=== PATIENT | male | born 1960 | race Caucasian/White ===

== ENCOUNTER 2018-02-22 07:43 | Inpatient (IN) | payer MEDICAID ==
--- NOTE | 2018-02-22 14:22 | PCM.HP ---
H&P History of Present Illness - General Date of Service: 02/22/18 Source of Information: Patient History Limitations: Reports: No Limitations - History of Present Illness Initial Comments - Free Text/Narative: Pt is a 58 year old male for VivekDE, who has had Right HIP ORIF done by Dr. Santos on 02/16/18. He has been recuperating well at [facility]. Pt has been able to ambulates with walker. He has been admitted here to [facility] for physical rehab. Pt's baseline is he uses Crutches at home and has with touch touch on the right foot. Pt does not have any concerns. No fever or chills. No nausea or vomiting. He does c/o pain but does not appear in any significant discomfort. Improves with: Reports: None Worsens with: Reports: None Associated Symptoms: Denies: Confusion, Chest Pain, Cough, Diaphoresis, Fever/ Chills, Headaches, Nausea/Vomiting, Rash, Seizure, Shortness of Breath, Syncope , Weakness Right Hip Pain Score (Numeric/FACES): 10 - Related Data Allergies/Adverse Reactions: Allergies Allergy/AdvReac Type Severity Reaction Status Date / Time amoxicillin Allergy Itching Verified 02/22/18 13:27 oxycodone Allergy Rash Verified 02/22/18 13:27 Penicillins Allergy Itching Verified 02/22/18 13:27 Home Medications: Home Meds Benztropine [Cogentin] 0.5 mg PO TID 02/22/18 [History] Doxazosin [Doxazosin Mesylate] 2 mg PO BEDTIME 02/22/18 [History] LORazepam 0.5 mg PO BID 02/22/18 [History] Mirtazapine [Remeron] 30 mg PO BEDTIME 02/22/18 [History] Voriconazole 200 mg PO BID 02/22/18 [History] Warfarin [Coumadin] 1 mg PO DAILY 02/22/18 [History] Ziprasidone HCl 40 mg PO BID 02/22/18 [History] Social & Family History - Tobacco Use Smoking Status *Q: Unknown Ever Smoked Second Hand Smoke Exposure: Yes - Caffeine Use Caffeine Use: Reports: None - Recreational Drug Use Recreational Drug Use: Yes Drug Use in Last 12 Months: Yes Recreational Drug Type: Reports: Ativan, Benzodiazepines, Morphine Recreational Drug Use Frequency: Daily H&P Review of Systems - Review of Systems: Review Of Systems: See Below General: Denies: Fever, Chills, Fatigue, Diaphoresis HEENT: Denies: Headaches, Rhinitis, Post Nasal Drip, Vertigo Pulmonary: Denies: Shortness of Breath, Cough, Sputum Cardiovascular: Denies: Chest Pain, Lightheadedness Gastrointestinal: Denies: Abdominal Pain, Nausea, Vomiting Genitourinary: Denies: Dysuria, Frequency Musculoskeletal: Denies: Joint Pain, Joint Swelling Skin: Reports: Bruising. Denies: Pruritis, Rash Psychiatric: Denies: Confusion, Depression Neurological: Denies: Confusion, Dizziness Exam - Exam Exam: See Below - Vital Signs Vital Signs: Last Vital Signs Temp 98.6 F 02/22/18 13:25 Pulse 96 02/22/18 13:25 Resp 18 02/22/18 13:25 BP 122/79 02/22/18 13:25 Pulse Ox 99 02/22/18 13:25 Weight: 76.204 kg - Exam General: Alert, Oriented, 4 HEENT: PERRLA Neck: Supple, Trachea Midline, 2 Lungs: Clear to Auscultation, Normal Respiratory Effort Cardiovascular: Regular Rate, Regular Rhythm GI/Abdominal Exam: Normal Bowel Sounds, Soft, Non-Tender, No Organomegaly, No Distention, No Abnormal Bruit, No Mass, Pelvis Stable Back Exam: Normal Inspection, Full Range of Motion, NT Extremities: Other (Right Hip: There is a long stapled wound over the lateral aspect of the hip extending into thelateral thigh. the wound appears clean. No erythema around the wound. Minimal tenderness to pressure.Also there is a small surgical wound over the right knee, which is healing nroamlly. Limited flexion of right hip.) Peripheral Pulses: 0: Carotid (L), 2+: Carotid (R), Radial (L), Radial (R) Skin: Warm, Intact - Problem List (1) Closed fracture of right hip requiring operative repair SNOMED Code(s): 647959328 ICD Code: S72.001A - FRACTURE OF UNSP PART OF NECK OF RIGHT FEMUR, INIT Status: Acute Current Visit: Yes Problem List Initiated/Reviewed/Updated: Yes Assessment/Plan Comment:: Assessment: S/P right hip fracture with ORIF Plan: pt is doing well. He needs OT and PT care. Will continue him on discharge meds. Once cleared by physical therapy and he is able to do ADLS with out assistance will plan on discharge. Will Get PT and INR on 02/24/18. Pt is not on pain will get him on tylenol extra strength for pain for now.
[2018-02-22] MEDS ORDERED: Tuberculin, PPD 5 Units/0.1 ML 1 ML MDV IDERM ONE (14:27)
[2018-02-22] MEDS: Acetaminophen 500 MG Tab PO PRN ×2 (15:40→20:52)
[2018-02-22] MEDS: LORazepam 0.5 MG Tab PO SCH (20:08)
[2018-02-22] MEDS: Mirtazapine 15 MG Tab PO SCH (20:09)
[2018-02-22] MEDS: ZIPRASIDONE HCL 20MG CAPSULE PO SCH (20:09)
[2018-02-22] MEDS: Benztropine 0.5 MG Tab PO SCH (20:10)
[2018-02-23] MEDS: Acetaminophen 500 MG Tab PO PRN ×4 (00:50→22:26)
[2018-02-23] MEDS: Benztropine 0.5 MG Tab PO SCH ×2 (08:07→20:06)
[2018-02-23] MEDS: ZIPRASIDONE HCL 20MG CAPSULE PO SCH ×2 (08:07→20:06)
[2018-02-23] MEDS: LORazepam 0.5 MG Tab PO SCH ×2 (08:07→20:00)
[2018-02-23] MEDS: VORICONAZOLE 200 MG PO SCH ×3 (11:41→20:08)
[2018-02-23] MEDS: Cyclobenzaprine 10 MG Tab PO PRN (18:35)
[2018-02-23] MEDS: Doxazosin 2 MG Tab PO SCH (20:05)
[2018-02-23] MEDS: Mirtazapine 15 MG Tab PO SCH (20:07)
[2018-02-24] MEDS: Cyclobenzaprine 10 MG Tab PO PRN ×4 (00:29→19:41)
[2018-02-24] MEDS: Acetaminophen 500 MG Tab PO PRN ×3 (04:32→18:26)
[2018-02-24] MEDS: LORazepam 0.5 MG Tab PO SCH ×3 (07:52→20:51)
[2018-02-24] MEDS: Benztropine 0.5 MG Tab PO SCH ×2 (07:53→19:40)
[2018-02-24] MEDS: ZIPRASIDONE HCL 20MG CAPSULE PO SCH ×2 (07:53→19:39)
[2018-02-24] MEDS: VORICONAZOLE 200 MG PO SCH ×2 (07:54→19:39)
[2018-02-24] MEDS ORDERED: traMADol 50 MG Tab PO ONE (18:56)
[2018-02-24] MEDS ORDERED: traMADol 50 MG Tab ONE (18:59)
[2018-02-24] MEDS: Doxazosin 2 MG Tab PO SCH (19:40)
[2018-02-24] MEDS: Mirtazapine 15 MG Tab PO SCH (19:41)
[2018-02-25] MEDS: Acetaminophen 500 MG Tab PO PRN ×4 (02:00→19:52)
[2018-02-25] MEDS: ZIPRASIDONE HCL 20MG CAPSULE PO SCH ×2 (08:45→19:51)
[2018-02-25] MEDS: Benztropine 0.5 MG Tab PO SCH ×2 (08:46→19:51)
[2018-02-25] MEDS: LORazepam 0.5 MG Tab PO SCH ×2 (08:46→19:53)
[2018-02-25] MEDS: VORICONAZOLE 200 MG PO SCH ×2 (08:46→19:51)
[2018-02-25] MEDS: Cyclobenzaprine 10 MG Tab PO PRN ×3 (08:50→19:52)
[2018-02-25] MEDS ORDERED: traMADol 50 MG Tab PO ONE (16:35)
[2018-02-25] MEDS: Mirtazapine 15 MG Tab PO SCH (19:52)
[2018-02-25] MEDS: Doxazosin 2 MG Tab PO SCH (19:53)
[2018-02-26] MEDS: Acetaminophen 500 MG Tab PO PRN ×3 (01:23→14:14)
[2018-02-26] MEDS: VORICONAZOLE 200 MG PO SCH ×2 (07:33→20:46)
[2018-02-26] MEDS: LORazepam 0.5 MG Tab PO SCH ×2 (07:33→20:46)
[2018-02-26] MEDS: ZIPRASIDONE HCL 20MG CAPSULE PO SCH ×2 (07:34→20:46)
[2018-02-26] MEDS: Benztropine 0.5 MG Tab PO SCH ×2 (07:35→20:46)
[2018-02-26] MEDS: Cyclobenzaprine 10 MG Tab PO PRN ×3 (07:44→20:46)
[2018-02-26] MEDS ORDERED: traMADol 50 MG Tab ONE (12:11)
[2018-02-26] MEDS: traMADol 50 MG Tab PO PRN (12:23)
[2018-02-26] MEDS: Doxazosin 2 MG Tab PO SCH (20:46)
[2018-02-26] MEDS: Mirtazapine 15 MG Tab PO SCH (20:46)
[2018-02-27] MEDS: Acetaminophen 500 MG Tab PO PRN ×2 (05:15)
[2018-02-27] MEDS: Cyclobenzaprine 10 MG Tab PO PRN (05:15)
[2018-02-27] MEDS: traMADol 50 MG Tab PO PRN ×2 (07:38→17:35)
[2018-02-27] MEDS: LORazepam 0.5 MG Tab PO SCH ×2 (07:39→19:48)
[2018-02-27] MEDS: ZIPRASIDONE HCL 20MG CAPSULE PO SCH ×2 (07:39→19:48)
[2018-02-27] MEDS: VORICONAZOLE 200 MG PO SCH ×2 (07:39→19:44)
[2018-02-27] MEDS: Benztropine 0.5 MG Tab PO SCH ×2 (07:40→19:48)
[2018-02-27] MEDS: Doxazosin 2 MG Tab PO SCH (19:44)
[2018-02-27] MEDS: Mirtazapine 15 MG Tab PO SCH (19:49)
[2018-02-28] MEDS: LORazepam 0.5 MG Tab PO SCH ×2 (07:57→20:03)
[2018-02-28] MEDS: VORICONAZOLE 200 MG PO SCH ×2 (07:57→20:05)
[2018-02-28] MEDS: ZIPRASIDONE HCL 20MG CAPSULE PO SCH ×2 (07:58→20:04)
[2018-02-28] MEDS: Benztropine 0.5 MG Tab PO SCH ×2 (07:58→20:05)
[2018-02-28] MEDS: Acetaminophen 500 MG Tab PO PRN ×2 (08:03→18:50)
[2018-02-28] MEDS: traMADol 50 MG Tab PO PRN (14:59)
[2018-02-28] MEDS: Doxazosin 2 MG Tab PO SCH (20:03)
[2018-02-28] MEDS: Mirtazapine 15 MG Tab PO SCH (20:03)
[2018-02-28] MEDS: Cyclobenzaprine 10 MG Tab PO PRN (20:08)
[2018-03-01] MEDS: Acetaminophen 500 MG Tab PO PRN ×2 (01:29→13:30)
[2018-03-01] MEDS: LORazepam 0.5 MG Tab PO SCH ×2 (08:09→19:33)
[2018-03-01] MEDS: ZIPRASIDONE HCL 20MG CAPSULE PO SCH ×2 (08:10→19:33)
[2018-03-01] MEDS: Benztropine 0.5 MG Tab PO SCH ×2 (08:10→19:34)
[2018-03-01] MEDS: traMADol 50 MG Tab PO PRN ×2 (08:11→21:40)
[2018-03-01] MEDS: VORICONAZOLE 200 MG PO SCH ×2 (08:11→19:32)
[2018-03-01] MEDS: Cyclobenzaprine 10 MG Tab PO PRN (11:59)
[2018-03-01] MEDS: Mirtazapine 15 MG Tab PO SCH (19:32)
[2018-03-01] MEDS: Doxazosin 2 MG Tab PO SCH (19:33)
[2018-03-02] MEDS: Cyclobenzaprine 10 MG Tab PO PRN ×2 (02:39→12:51)
[2018-03-02] MEDS: LORazepam 0.5 MG Tab PO SCH ×2 (08:09→19:48)
[2018-03-02] MEDS: VORICONAZOLE 200 MG PO SCH ×2 (08:11→19:49)
[2018-03-02] MEDS: ZIPRASIDONE HCL 20MG CAPSULE PO SCH ×2 (08:11→19:49)
[2018-03-02] MEDS: Benztropine 0.5 MG Tab PO SCH ×2 (08:11→19:49)
[2018-03-02] MEDS: traMADol 50 MG Tab PO PRN ×2 (08:12→15:40)
[2018-03-02] MEDS: Acetaminophen 500 MG Tab PO PRN (08:13)
[2018-03-02] MEDS: Mirtazapine 15 MG Tab PO SCH (19:48)
[2018-03-02] MEDS: Doxazosin 2 MG Tab PO SCH (19:48)
[2018-03-03] MEDS: LORazepam 0.5 MG Tab PO SCH ×2 (08:08→20:18)
[2018-03-03] MEDS: Benztropine 0.5 MG Tab PO SCH ×2 (08:09→20:18)
[2018-03-03] MEDS: VORICONAZOLE 200 MG PO SCH ×2 (08:09→20:17)
[2018-03-03] MEDS: ZIPRASIDONE HCL 20MG CAPSULE PO SCH ×2 (08:09→20:19)
[2018-03-03] MEDS: Acetaminophen 500 MG Tab PO PRN ×2 (08:13→18:51)
--- NOTE | 2018-03-03 08:34 | PCM.PN ---
- General Info Date of Service: 03/03/18 Subjective Update: Patient has some pain of the hip. He denies any fever, no sob, no chest pain, no other health complaints. Denies any issues. - Review of Systems General: Reports: Weakness HEENT: Reports: No Symptoms Pulmonary: Reports: No Symptoms Cardiovascular: Reports: No Symptoms Gastrointestinal: Reports: No Symptoms Genitourinary: Reports: No Symptoms Musculoskeletal: Reports: Leg Pain, Joint Pain Skin: Reports: No Symptoms Neurological: Reports: No Symptoms - Patient Data Vitals - Most Recent: Last Vital Signs Temp 36.4 C 03/02/18 08:00 Pulse 94 03/02/18 08:00 Resp 18 03/02/18 08:00 BP 125/86 03/02/18 19:48 Pulse Ox 97 03/02/18 08:00 Weight - Most Recent: 67.245 kg Med Orders - Current: Current Medications Acetaminophen (Tylenol Extra Strength) 1,000 mg PO Q6H PRN PRN Reason: Pain Last Admin: 03/03/18 08:13 Dose: 1,000 mg Acetaminophen (Tylenol Extra Strength) 500 mg PO Q6H PRN PRN Reason: PAIN Last Admin: 03/02/18 08:13 Dose: 500 mg Benztropine Mesylate (Cogentin) 0.5 mg PO BID [facility] Last Admin: 03/03/18 08:09 Dose: 0.5 mg Cyclobenzaprine HCl (Flexeril) 10 mg PO TID PRN PRN Reason: Pain Last Admin: 03/02/18 12:51 Dose: 10 mg Doxazosin Mesylate (Cardura) 2 mg PO BEDTIME [facility] Last Admin: 03/02/18 19:48 Dose: 2 mg Lorazepam (Ativan) 0.5 mg PO BID [facility] Last Admin: 03/03/18 08:08 Dose: 0.5 mg Mirtazapine (Remeron) 45 mg PO BEDTIME [facility] Last Admin: 03/02/18 19:48 Dose: 45 mg Non-Formulary Medication (Voriconazole [Voriconazole]) 200 mg PO BID [facility] Last Admin: 03/03/18 08:09 Dose: 200 mg Ziprasidone Hcl 20mg (Capsule) 2 each PO BID [facility] Last Admin: 03/03/18 08:09 Dose: 2 each Tramadol HCl (Ultram) 50 mg PO Q6H PRN PRN Reason: Pain Last Admin: 03/02/18 15:40 Dose: 50 mg Warfarin Sodium (Coumadin) 1 mg PO DAILY@1800 [facility] Last Admin: 03/02/18 17:38 Dose: 1 mg Discontinued Medications Acetaminophen (Tylenol Extra Strength) 500 mg PO Q6H PRN PRN Reason: Pain Last Admin: 02/22/18 20:52 Dose: 500 mg Tramadol HCl (Ultram) 50 mg PO ONETIME ONE Stop: 02/24/18 18:57 Last Admin: 02/24/18 18:59 Dose: 50 mg Tramadol HCl (Ultram) Confirm Administered Dose 50 mg .ROUTE .STK-MED ONE Stop: 02/24/18 19:00 Last Admin: 02/24/18 19:39 Dose: Not Given Tramadol HCl (Ultram) 50 mg PO ONETIME ONE Stop: 02/25/18 16:36 Last Admin: 02/25/18 17:47 Dose: 50 mg Tramadol HCl (Ultram) Confirm Administered Dose 50 mg .ROUTE .STK-MED ONE Stop: 02/26/18 12:12 Last Admin: 02/26/18 14:12 Dose: Not Given Tuberculin PPD (Aplisol) 5 unit IDERM ONETIME ONE Stop: 02/22/18 14:28 Last Admin: 02/22/18 18:24 Dose: 5 unit Warfarin Sodium (Coumadin) 1 mg PO ONETIME ONE Stop: 02/22/18 18:01 Last Admin: 02/22/18 18:49 Dose: Not Given - Exam General: Alert, Oriented, Cooperative HEENT: Pupils Equal, Pupils Reactive, EOMI Neck: Supple Lungs: Clear to Auscultation, Normal Respiratory Effort Cardiovascular: Regular Rate, Regular Rhythm GI/Abdominal Exam: Normal Bowel Sounds Back Exam: Normal Inspection Extremities: Normal Inspection - Problem List & Annotations (1) Closed fracture of right hip requiring operative repair SNOMED Code(s): 421652520 Code(s): S72.001A - FRACTURE OF UNSP PART OF NECK OF RIGHT FEMUR, INIT Status: Acute - Problem List Review Problem List Initiated/Reviewed/Updated: Yes - Plan Plan:: Assessment: S/P right hip fracture with ORIF Plan: pt is doing well. He needs OT and PT care. Will continue him on discharge meds. Once cleared by physical therapy and he is able to do ADLS with out assistance will plan on discharge. Will Get PT and INR on 02/24/18. Pt is not on pain will get him on tylenol extra strength for pain for now. Patient to continue current management and PT/OT.
[2018-03-03] MEDS: Doxazosin 2 MG Tab PO SCH (20:18)
[2018-03-03] MEDS: Mirtazapine 15 MG Tab PO SCH (20:19)
[2018-03-03] MEDS: traMADol 50 MG Tab PO PRN (20:21)
[2018-03-04] MEDS: LORazepam 0.5 MG Tab PO SCH ×2 (07:54→19:33)
[2018-03-04] MEDS: ZIPRASIDONE HCL 20MG CAPSULE PO SCH ×2 (07:55→19:34)
[2018-03-04] MEDS: VORICONAZOLE 200 MG PO SCH ×2 (07:55→19:34)
[2018-03-04] MEDS: Benztropine 0.5 MG Tab PO SCH ×2 (07:55→19:34)
[2018-03-04] MEDS: traMADol 50 MG Tab PO PRN ×2 (07:56→19:33)
[2018-03-04] MEDS: Acetaminophen 500 MG Tab PO PRN ×2 (07:57→16:40)
[2018-03-04] MEDS: Cyclobenzaprine 10 MG Tab PO PRN ×2 (12:55→19:33)
[2018-03-04] MEDS: Mirtazapine 15 MG Tab PO SCH (19:32)
[2018-03-04] MEDS: Doxazosin 2 MG Tab PO SCH (19:33)
[2018-03-05] MEDS: ZIPRASIDONE HCL 20MG CAPSULE PO SCH ×2 (07:29→19:12)
[2018-03-05] MEDS: Benztropine 0.5 MG Tab PO SCH ×2 (07:29→19:12)
[2018-03-05] MEDS: LORazepam 0.5 MG Tab PO SCH ×2 (07:29→19:13)
[2018-03-05] MEDS: VORICONAZOLE 200 MG PO SCH ×2 (07:30→19:12)
[2018-03-05] MEDS: traMADol 50 MG Tab PO PRN ×2 (07:35→14:25)
[2018-03-05] MEDS: Acetaminophen 500 MG Tab PO PRN ×2 (08:59→19:13)
[2018-03-05] MEDS: Doxazosin 2 MG Tab PO SCH (19:12)
[2018-03-05] MEDS: Mirtazapine 15 MG Tab PO SCH (19:12)
[2018-03-05] MEDS: Cyclobenzaprine 10 MG Tab PO PRN (19:13)
[2018-03-06] MEDS: traMADol 50 MG Tab PO PRN ×4 (01:56→21:13)
[2018-03-06] MEDS: Acetaminophen 500 MG Tab PO PRN ×2 (01:56→08:42)
[2018-03-06] MEDS: LORazepam 0.5 MG Tab PO SCH ×2 (07:38→19:32)
[2018-03-06] MEDS: VORICONAZOLE 200 MG PO SCH ×2 (07:38→19:35)
[2018-03-06] MEDS: ZIPRASIDONE HCL 20MG CAPSULE PO SCH ×2 (07:38→19:33)
[2018-03-06] MEDS: Benztropine 0.5 MG Tab PO SCH ×2 (07:38→19:34)
--- NOTE | 2018-03-06 14:57 | PCM.PN ---
- General Info Date of Service: 03/06/18 Subjective Update: Patient doing well with PT/OT and denies any health concerns. He has some tenderness of the post surgical hip site but does have a Orthopedics f/u. Functional Status: Reports: Pain Controlled - Review of Systems General: Reports: Weakness (improving ) HEENT: Reports: No Symptoms Pulmonary: Reports: No Symptoms Cardiovascular: Reports: No Symptoms Gastrointestinal: Reports: No Symptoms Genitourinary: Reports: No Symptoms Musculoskeletal: Reports: Joint Pain Skin: Reports: No Symptoms Neurological: Reports: No Symptoms - Patient Data Vitals - Most Recent: Last Vital Signs Temp 36.7 C 03/06/18 07:26 Pulse 83 03/06/18 07:26 Resp 18 03/06/18 07:26 BP 132/90 03/06/18 07:26 Pulse Ox 98 03/06/18 07:26 Weight - Most Recent: 66.497 kg Med Orders - Current: Current Medications Acetaminophen (Tylenol Extra Strength) 1,000 mg PO Q6H PRN PRN Reason: Pain Last Admin: 03/05/18 19:13 Dose: 1,000 mg Acetaminophen (Tylenol Extra Strength) 500 mg PO Q6H PRN PRN Reason: PAIN Last Admin: 03/06/18 08:42 Dose: 500 mg Benztropine Mesylate (Cogentin) 0.5 mg PO BID [facility] Last Admin: 03/06/18 07:38 Dose: 0.5 mg Cyclobenzaprine HCl (Flexeril) 10 mg PO TID PRN PRN Reason: Pain Last Admin: 03/05/18 19:13 Dose: 10 mg Doxazosin Mesylate (Cardura) 2 mg PO BEDTIME [facility] Last Admin: 03/05/18 19:12 Dose: 2 mg Lisinopril (Prinivil) 5 mg PO DAILY [facility] Lorazepam (Ativan) 0.5 mg PO BID [facility] Last Admin: 03/06/18 07:38 Dose: 0.5 mg Mirtazapine (Remeron) 45 mg PO BEDTIME [facility] Last Admin: 03/05/18 19:12 Dose: 45 mg Non-Formulary Medication (Voriconazole [Voriconazole]) 200 mg PO BID [facility] Last Admin: 03/06/18 07:38 Dose: 200 mg Ziprasidone Hcl 20mg (Capsule) 2 each PO BID [facility] Last Admin: 03/06/18 07:38 Dose: 2 each Tramadol HCl (Ultram) 50 mg PO Q6H PRN PRN Reason: Pain Last Admin: 03/06/18 13:56 Dose: 50 mg Warfarin Sodium (Coumadin) 1 mg PO DAILY@1800 [facility] Last Admin: 03/05/18 18:03 Dose: 1 mg Discontinued Medications Acetaminophen (Tylenol Extra Strength) 500 mg PO Q6H PRN PRN Reason: Pain Last Admin: 02/22/18 20:52 Dose: 500 mg Tramadol HCl (Ultram) 50 mg PO ONETIME ONE Stop: 02/24/18 18:57 Last Admin: 02/24/18 18:59 Dose: 50 mg Tramadol HCl (Ultram) Confirm Administered Dose 50 mg .ROUTE .STK-MED ONE Stop: 02/24/18 19:00 Last Admin: 02/24/18 19:39 Dose: Not Given Tramadol HCl (Ultram) 50 mg PO ONETIME ONE Stop: 02/25/18 16:36 Last Admin: 02/25/18 17:47 Dose: 50 mg Tramadol HCl (Ultram) Confirm Administered Dose 50 mg .ROUTE .STK-MED ONE Stop: 02/26/18 12:12 Last Admin: 02/26/18 14:12 Dose: Not Given Tuberculin PPD (Aplisol) 5 unit IDERM ONETIME ONE Stop: 02/22/18 14:28 Last Admin: 02/22/18 18:24 Dose: 5 unit Warfarin Sodium (Coumadin) 1 mg PO ONETIME ONE Stop: 02/22/18 18:01 Last Admin: 02/22/18 18:49 Dose: Not Given - Exam General: Alert, Oriented, Cooperative HEENT: Pupils Equal, Pupils Reactive, EOMI Neck: Supple Lungs: Clear to Auscultation, Normal Respiratory Effort Cardiovascular: Regular Rate, Regular Rhythm GI/Abdominal Exam: Normal Bowel Sounds Extremities: Normal Inspection - Problem List Review Problem List Initiated/Reviewed/Updated: Yes - My Orders Last 24 Hours: My Active Orders 03/06/18 11:41 INR,PT,PROTHROMBIN TIME [COAG] Routine 03/07/18 08:00 Lisinopril [Prinivil] 5 mg PO DAILY - Plan Plan:: Assessment: S/P right hip fracture with ORIF Plan: pt is doing well. He needs OT and PT care. Will continue him on discharge meds. Once cleared by physical therapy and he is able to do ADLS with out assistance will plan on discharge. Will Get PT and INR on 02/24/18. Pt is not on pain will get him on tylenol extra strength for pain for now. No changes to management plan. Continuing PT/OT. Follow Orthopedics as counseled.
[2018-03-06] MEDS: Mirtazapine 15 MG Tab PO SCH (19:32)
[2018-03-06] MEDS: Doxazosin 2 MG Tab PO SCH (19:32)
[2018-03-07] MEDS: Acetaminophen 500 MG Tab PO PRN ×3 (01:45→20:17)
[2018-03-07] MEDS: Lisinopril 5 MG Tab PO SCH (07:52)
[2018-03-07] MEDS: ZIPRASIDONE HCL 20MG CAPSULE PO SCH ×2 (07:52→20:18)
[2018-03-07] MEDS: VORICONAZOLE 200 MG PO SCH ×2 (07:52→20:18)
[2018-03-07] MEDS: LORazepam 0.5 MG Tab PO SCH ×2 (07:52→20:18)
[2018-03-07] MEDS: Benztropine 0.5 MG Tab PO SCH ×2 (07:52→20:19)
[2018-03-07] MEDS: traMADol 50 MG Tab PO PRN ×2 (07:56→14:47)
[2018-03-07] MEDS: Cyclobenzaprine 10 MG Tab PO PRN (18:54)
[2018-03-07] MEDS: Doxazosin 2 MG Tab PO SCH (20:17)
[2018-03-07] MEDS: Mirtazapine 15 MG Tab PO SCH (20:17)
[2018-03-08] MEDS: traMADol 50 MG Tab PO PRN ×2 (03:03→19:19)
[2018-03-08] MEDS: Lisinopril 5 MG Tab PO SCH (08:09)
[2018-03-08] MEDS: VORICONAZOLE 200 MG PO SCH ×2 (08:09→19:21)
[2018-03-08] MEDS: Benztropine 0.5 MG Tab PO SCH ×2 (08:10→19:21)
[2018-03-08] MEDS: ZIPRASIDONE HCL 20MG CAPSULE PO SCH ×2 (08:10→19:21)
[2018-03-08] MEDS: LORazepam 0.5 MG Tab PO SCH ×2 (08:11→21:44)
[2018-03-08] MEDS: Acetaminophen 500 MG Tab PO PRN ×3 (08:13→19:19)
[2018-03-08] MEDS: Doxazosin 2 MG Tab PO SCH (19:19)
[2018-03-08] MEDS: Mirtazapine 15 MG Tab PO SCH (19:19)
[2018-03-08] MEDS: Cyclobenzaprine 10 MG Tab PO PRN (19:20)
[2018-03-09] MEDS: traMADol 50 MG Tab PO PRN ×3 (04:39→20:09)
[2018-03-09] MEDS: Acetaminophen 500 MG Tab PO PRN (04:39)
[2018-03-09] MEDS: Lisinopril 5 MG Tab PO SCH (07:49)
[2018-03-09] MEDS: ZIPRASIDONE HCL 20MG CAPSULE PO SCH ×2 (07:50→21:24)
[2018-03-09] MEDS: VORICONAZOLE 200 MG PO SCH ×2 (07:50→21:25)
[2018-03-09] MEDS: LORazepam 0.5 MG Tab PO SCH ×2 (07:50→19:33)
[2018-03-09] MEDS: Benztropine 0.5 MG Tab PO SCH ×2 (07:50→21:24)
--- NOTE | 2018-03-09 08:37 | PCM.DCSUM1 ---
Discharge Summary - Hospital Course Free Text/Narrative:: Pt was admitted for post -op rehab s/p Right hip ORIF on 02/16/17. Tp has had a uneventful progress. Pt feels that he has attained decent strength and also the wound over the right hip has healed well. Pt has been planned for discharge tomorrow. Plan is to continue on home meds. As patient cannot drive and needs physical therapy, will set him up for home Physical therapy through [facility] in [place]. Coumadin until 03/16/18. Followup with Derrick in 2 wks. HPI Initial Comments: Pt on today's visit claims he has been doing well. The wound has healed well. No fever or chills. Brief History: Kindly see H&P - Discharge Data Discharge Date: 03/10/18 Discharge Disposition: Home, Self-Care 01 Condition: Good - Discharge Diagnosis/Problem(s) (1) Closed fracture of right hip requiring operative repair SNOMED Code(s): 638766328 ICD Code: S72.001A - FRACTURE OF UNSP PART OF NECK OF RIGHT FEMUR, INIT Status: Acute Current Visit: Yes - Patient Summary/Data Consults: Consultations 02/22/18 14:27 OT Evaluation and Treatment [CONS] Routine Please Evaluate and Treat. OT Reason for Consult: ADL's This query below is only for informational purposes and is not editable. Admission Diagnosis/Problem: Pain management PT Evaluation and Treatment [CONS] Routine Please Evaluate and Treat. PT Reason for Consult: Strengthening This query below is only for informational purposes and is not editable. Admission Diagnosis/Problem: Pain management - Patient Instructions Diet: Usual Diet as Tolerated Fluid Restriction: 1500 mL Activity: As Tolerated Driving: Do Not Drive Showering/Bathing: May Shower Wound/Incision Care: Keep Operative Site/Wound Site Clean and Dry - Discharge Plan *PRESCRIPTION DRUG MONITORING PROGRAM REVIEWED*: Yes *COPY OF PRESCRIPTION DRUG MONITORING REPORT IN PATIENT [place]: Yes Prescriptions/Med Rec: traMADol [Ultram] 50 mg PO Q6H PRN 5 Days tablet PRN Reason: Pain Home Medications: Home Meds Benztropine [Cogentin] 0.5 mg PO TID 02/22/18 [History] Doxazosin [Cardura] 2 mg PO BEDTIME 02/22/18 [History] LORazepam 0.5 mg PO BID 02/22/18 [History] Mirtazapine [Remeron] 30 mg PO BEDTIME 02/22/18 [History] Voriconazole 200 mg PO BID 02/22/18 [History] Warfarin [Coumadin] 1 mg PO DAILY 02/22/18 [History] Ziprasidone HCl 40 mg PO BID 02/22/18 [History] Cyclobenzaprine [Flexeril] 10 mg PO TID PRN tablet 03/09/18 [Rx] Lisinopril [Prinivil] 5 mg PO DAILY tablet 03/09/18 [Rx] traMADol [Ultram] 50 mg PO Q6H PRN 5 Days tablet 03/09/18 [Rx] - General Info Date of Service: 03/09/18 Functional Status: Reports: Pain Controlled, Tolerating Diet, Ambulating, Urinating - Review of Systems General: Denies: Weakness, Fatigue HEENT: Denies: Dysphasia, Ear Pain, Headaches Pulmonary: Denies: Sputum, Hemoptysis Cardiovascular: Denies: Edema, Lightheadedness Gastrointestinal: Reports: Flatus. Denies: Abdominal Pain, Diarrhea Genitourinary: Denies: Dysuria, Frequency Musculoskeletal: Denies: Joint Pain, Joint Swelling Skin: Denies: Bruising, Pruritis Neurological: Denies: Confusion, Dizziness, Headache - Patient Data Vitals - Most Recent: Last Vital Signs Temp 98 F 03/09/18 08:00 Pulse 78 03/09/18 08:00 Resp 16 03/09/18 08:00 BP 134/87 03/09/18 08:00 Pulse Ox 99 03/09/18 08:00 Weight - Most Recent: 66.497 kg Med Orders - Current: Current Medications Acetaminophen (Tylenol Extra Strength) 1,000 mg PO Q6H PRN PRN Reason: Pain Last Admin: 03/08/18 15:57 Dose: 1,000 mg Acetaminophen (Tylenol Extra Strength) 500 mg PO Q6H PRN PRN Reason: PAIN Last Admin: 03/09/18 04:39 Dose: 500 mg Benztropine Mesylate (Cogentin) 0.5 mg PO BID [facility] Last Admin: 03/09/18 07:50 Dose: 0.5 mg Cyclobenzaprine HCl (Flexeril) 10 mg PO TID PRN PRN Reason: Pain Last Admin: 03/08/18 19:20 Dose: 10 mg Doxazosin Mesylate (Cardura) 2 mg PO BEDTIME [facility] Last Admin: 03/08/18 19:19 Dose: 2 mg Lisinopril (Prinivil) 5 mg PO DAILY [facility] Last Admin: 03/09/18 07:49 Dose: 5 mg Lorazepam (Ativan) 0.5 mg PO BID [facility] Last Admin: 03/09/18 07:50 Dose: 0.5 mg Mirtazapine (Remeron) 45 mg PO BEDTIME [facility] Last Admin: 03/08/18 19:19 Dose: 45 mg Non-Formulary Medication (Voriconazole [Voriconazole]) 200 mg PO BID [facility] Last Admin: 03/09/18 07:50 Dose: 200 mg Ziprasidone Hcl 20mg (Capsule) 2 each PO BID [facility] Last Admin: 03/09/18 07:50 Dose: 2 each Tramadol HCl (Ultram) 50 mg PO Q6H PRN PRN Reason: Pain Last Admin: 03/09/18 04:39 Dose: 50 mg Warfarin Sodium (Coumadin) 1.5 mg PO DAILY@1800 [facility] Last Admin: 03/08/18 17:42 Dose: 1.5 mg Discontinued Medications Acetaminophen (Tylenol Extra Strength) 500 mg PO Q6H PRN PRN Reason: Pain Last Admin: 02/22/18 20:52 Dose: 500 mg Tramadol HCl (Ultram) 50 mg PO ONETIME ONE Stop: 02/24/18 18:57 Last Admin: 02/24/18 18:59 Dose: 50 mg Tramadol HCl (Ultram) Confirm Administered Dose 50 mg .ROUTE .STK-MED ONE Stop: 02/24/18 19:00 Last Admin: 02/24/18 19:39 Dose: Not Given Tramadol HCl (Ultram) 50 mg PO ONETIME ONE Stop: 02/25/18 16:36 Last Admin: 02/25/18 17:47 Dose: 50 mg Tramadol HCl (Ultram) Confirm Administered Dose 50 mg .ROUTE .STK-MED ONE Stop: 02/26/18 12:12 Last Admin: 02/26/18 14:12 Dose: Not Given Tuberculin PPD (Aplisol) 5 unit IDERM ONETIME ONE Stop: 02/22/18 14:28 Last Admin: 02/22/18 18:24 Dose: 5 unit Warfarin Sodium (Coumadin) 1 mg PO DAILY@1800 [facility] Last Admin: 03/05/18 18:03 Dose: 1 mg Warfarin Sodium (Coumadin) 1 mg PO ONETIME ONE Stop: 02/22/18 18:01 Last Admin: 02/22/18 18:49 Dose: Not Given - Exam General: Reports: Alert, Oriented HEENT: Reports: Pupils Equal Neck: Reports: Supple Lungs: Reports: Clear to Auscultation, Normal Respiratory Effort Cardiovascular: Reports: Regular Rate, Regular Rhythm GI/Abdominal Exam: Normal Bowel Sounds, Soft, Non-Tender, No Organomegaly, No Distention, No Abnormal Bruit, No Mass, Pelvis Stable Extremities: Normal Inspection, Normal Range of Motion, Non-Tender, No Pedal Edema, Normal Capillary Refill Skin: Reports: Warm, Intact, Other (right hip: ther wound has healed well. No skin break down.)
[2018-03-09] MEDS: Cyclobenzaprine 10 MG Tab PO PRN ×2 (12:19→21:28)
[2018-03-09] MEDS ORDERED: Warfarin 2.5 MG Tab ONE ×2 (15:19→16:00)
[2018-03-09] MEDS ORDERED: Warfarin 2.5 MG Tab PO ONE (18:34)
[2018-03-09] MEDS: Doxazosin 2 MG Tab PO SCH (19:34)
[2018-03-09] MEDS: Mirtazapine 15 MG Tab PO SCH (19:34)
[2018-03-10] MEDS: Benztropine 0.5 MG Tab PO SCH (08:19)
[2018-03-10] MEDS: Lisinopril 5 MG Tab PO SCH (08:20)
[2018-03-10] MEDS: ZIPRASIDONE HCL 20MG CAPSULE PO SCH (08:20)
[2018-03-10] MEDS: LORazepam 0.5 MG Tab PO SCH (08:21)
[2018-03-10] MEDS: Cyclobenzaprine 10 MG Tab PO PRN (08:27)
[2018-03-10] MEDS: VORICONAZOLE 200 MG PO SCH (08:27)
== END 2018-03-10 11:35 | disposition home or self-care (01) | DRG 536 ==
LOC: UNDOADMIN 12:56 → LB.MS 12:56
PROVIDERS: ADMIT Family Medicine; ATTEND Family Medicine
DX: S72.001A Fracture of unspecified part of neck of right femur, initial encounter for closed fracture (principal); Z79.899 Other long term (current) drug therapy; Z88.1 Allergy status to other antibiotic agents; Z88.5 Allergy status to narcotic agent; Z88.0 Allergy status to penicillin; Z79.01 Long term (current) use of anticoagulants; X58.XXXA Exposure to other specified factors, initial encounter
CPT/HCPCS: 85610; 86580; 97110-GP; 97161-GP; 97165-GO; 97530-GO; 97530-GP; 97535-GO; A9270; A9270-GY